=== PATIENT | female | born 1965 | race Caucasian/White ===

== ENCOUNTER → 2021-10-03 | Outpatient (CLI) | payer OTHER ==
[~2021-10-03] MED LIST: FLONASE ALLERG9.9 ML NAS; LEVOFLOXACIN500 MG PO; MOTRIN800 MG PO; PREDNISONE20 M1 PO; SUDAFED 12 HOU120 MG PO; SYNTHROID0.075 MG PO
== END | disposition home or self-care (01) ==
LOC: COVID19 15:42
PROVIDERS: ATTEND Internal Medicine
DX: Z11.52 Encounter for screening for COVID-19 (principal)

== ENCOUNTER → 2021-11-07 | Outpatient (CLI) | payer BC | END | disposition home or self-care (01) | LOC: COVID19 14:56 | PROVIDERS: ATTEND Internal Medicine | DX: U07.1 COVID-19 (principal) ==

== ENCOUNTER 2021-12-12 09:35 | Emergency (ER) | payer BC ==
[~2021-12-12] VITALS: Ht 170.1 cm; Wt 104.3 kg
[2021-12-12 11:17] LABS: BILIRUBIN Negative (Negative); BLOOD Negative (Negative); CLARITY Clear (Clear); COLOR Dark Yellow (Yellow); GLUCOSE Negative (Negative); KETONE Trace (Negative); LEUKO ESTERASE Trace (Negative); NITRITE Negative (Negative); PH 5.5 (4.5-8.0); SPECIFIC GRAVITY >= 1.030 (1.001-1.030)
[2021-12-12 11:26] LABS: BACTERIA 1+
[2021-12-12 11:31] LABS: BASO % 0.3 % (0.0-1.0); EOS % 0.2 % (1.0-4.0); HEMATOCRIT 41.6 % (37.0-47.0); LYMPH # 0.8 10*3/uL (1.3-4.4); LYMPH % 12.7 % (27.0-41.0); MEAN CELL VOLUME 89.7 fl (81.0-99.0); MEAN CORPUSCULAR HGB CONC 34.6 g/dl (33.0-37.0); MEAN PLATELET VOLUME 8.3 fl (9.6-12.3); MONO # 0.4 10*3/uL (0.1-1.0); MONO % 6.3 % (3.0-9.0); NEUT # 4.9 10*3/uL (2.3-7.9); NEUT % 79.8 % (47.0-73.0); PLATELET COUNT AUTOMATED 300 10*3/uL (130-400); RED BLOOD COUNT 4.64 10*6/uL (4.10-5.10); RED CELL DISTRI WIDTH 13.3 % (0-14.5); WHITE BLOOD COUNT 6.1 10*3/uL (4.8-10.8)
[2021-12-12 11:45] LABS: ACT PARTIAL THROMBO TIME 25.9 SECONDS (20.0-32.1)
[2021-12-12 11:48] LABS: ALBUMIN 3.4 gm/dl (3.1-4.5); ALKALINE PHOSPHATASE 55 U/L (45-117); BUN 18 mg/dl (7-24); CHLORIDE 108 mmol/L (98-107); CREATININE 0.87 mg/dL (0.55-1.02); LIPASE 39 U/L (73-393); POTASSIUM 3.4 mmol/L (3.5-5.1); SGOT/AST 15 IU/L (3-35); SGPT/ALT 32 U/L (12-78); SODIUM 138 mmol/L (136-145); TOTAL PROTEIN 6.8 gm/dL (6.4-8.2)
[2021-12-12] MEDS ORDERED: ZITHROMAX250 MG PO (14:18)
[2021-12-12] MEDS ORDERED: PHENERGAN25 M3 PO (14:18)
== END 2021-12-12 14:42 | disposition home or self-care (01) ==
LOC: ED 09:35
PROVIDERS: Emergency Medicine
DX: K52.9 Noninfective gastroenteritis and colitis, unspecified (principal); J18.9 Pneumonia, unspecified organism; Z88.8 Allergy status to other drugs, medicaments and biological substances; Z79.899 Other long term (current) drug therapy